=== PATIENT | female | born 1950 | race Caucasian/White ===

== ENCOUNTER → 2017-02-01 | Outpatient (CLI) | payer BC, MEDICARE ==
--- NOTE | 2017-02-05 07:22 | MM ---
Reason for exam: screening (asymptomatic). Last mammogram was performed 7 years ago. History: Patient is postmenopausal. Cancelled Right US Needle Biopsy of the right breast, June 27, 2005. Took hormonal contraceptives for 6 months. Took estrogen for 2 years beginning at age 49. Physical Findings: A clinical breast exam by your physician is recommended on an annual basis and results should be correlated with mammographic findings. MG Screening Mammo w CAD Bilateral CC and MLO view(s) were taken. Prior study comparison: January 25, 2010, bilateral digital screening mammogram. May 12, 2007, bilateral screening mammogram w/CAD. The breast tissue is heterogeneously dense. This may lower the sensitivity of mammography. Nodular asymmetry far posterior and lateral right CC view likely not included in the field of view on prior exams. An intramammary lymph node is suggested. 6 month follow up recommended. ASSESSMENT: Probably benign, BI-RAD 3 RECOMMENDATION: Follow-up diagnostic mammogram of the right breast in 6 months.
== END | disposition home or self-care (01) ==
LOC: RADMAMWWP 14:58
PROVIDERS: ATTEND Family Medicine
DX: Z12.31 Encounter for screening mammogram for malignant neoplasm of breast (principal)

== ENCOUNTER → 2018-03-07 | Outpatient (CLI) | payer MEDICARE ==
--- NOTE | 2018-03-10 11:19 | MM ---
Reason for exam: screening (asymptomatic). Last mammogram was performed 1 year and 1 month ago. History: Patient is postmenopausal. Cancelled Right US Needle Biopsy of the right breast, June 27, 2005. Took hormonal contraceptives for 6 months. Took estrogen for 2 years beginning at age 49. Physical Findings: A clinical breast exam by your physician is recommended on an annual basis and results should be correlated with mammographic findings. MG Screening Mammo w CAD Bilateral CC and MLO view(s) were taken. Prior study comparison: February 01, 2017, bilateral MG screening mammo w CAD. January 25, 2010, bilateral digital screening mammogram. The breast tissue is heterogeneously dense. This may lower the sensitivity of mammography. No significant changes when compared with prior studies. ASSESSMENT: Benign, BI-RAD 2 RECOMMENDATION: Routine screening mammogram of both breasts in 1 year.
== END | disposition home or self-care (01) ==
LOC: RADMAMWWP 15:13
PROVIDERS: ATTEND Family Medicine
DX: Z12.31 Encounter for screening mammogram for malignant neoplasm of breast (principal)
CPT/HCPCS: 77067

== ENCOUNTER → 2020-07-27 | Day surgery (SDC) | payer MEDICARE ==
[2020-07-25 11:04] VITALS: BMI 27.4
[~2020-07-27] MED LIST: BALANCED SALT IRRIG SOLN COMB2 15 ML IRRIG.SOLN INTRAOCULA ONE; EPINEPHrine (PF) 0.3 ML in BALANCED SALT IRRIG SOLN COMB2 500 ML IRRIGATION ONE; HYALURONATE SODIUM INTRAOCULAR 1 EACH SYRINGE (12MG/ML) INTRAOCULA ONE; LACTATED RINGERS 1,000 ML IV SCH; LIDOCAINE 1% (PF) 10MG/ML VIAL SQ ONE; MIDAZOLAM 2 MG/2 ML VIAL ONE; MOXIFLOXACIN HCL 0.5% DROPS 3 ML BTL OP PRN; TETRACAINE 0.5% OPHTH (PF) DROPS 4 ML BTL OP PRN; TIMOLOL 0.5% OPHTH DROPS 5 ML BTL OP PRN; fentaNYL (PF) 50 MCG/ML 2 ML AMP ONE
[2020-07-27] MEDS: CYCLOPENTOLATE 1% OPHTH SOLN 2 ML BTL OP PRN ×3 (07:53→08:00)
[2020-07-27] MEDS: PHENYLEPHRINE 2.5% OPHTH DRP 2ML OP PRN ×3 (07:54→08:01)
[2020-07-27 07:59] VITALS: TEMP 97.4
[2020-07-27 08:06] LABS: Glucose,Whole Blood 125 mg/dL (75-99)
--- NOTE | 2020-07-27 09:25 | P.OP ---
Date of Procedure: 07/27/20 Preoperative Diagnosis: ns & cs & psc Postoperative Diagnosis: same Procedure(s) Performed: PIOL, OS Implants: MX50E 15.5 Anesthesia: MAC Surgeon: Newton Dos Santos Pathology: none sent Condition: stable Disposition: same day Indications for Procedure: blurry vision Operative Findings: no complications
[2020-07-27 09:46] VITALS: BP 121/74; PULSE 74; RESP 18
--- NOTE | 2020-07-27 16:06 | OP ---
OPERATIVE REPORT DATE OF SURGERY: July 27, 2020. PROCEDURE: Phacoemulsification of cataract and intraocular lens implant of the left eye. PREOPERATIVE DIAGNOSES: Nuclear sclerosis, cortical sclerosis and posterior subcapsular cataract and regular astigmatism. POSTOPERATIVE DIAGNOSES: Nuclear sclerosis, cortical sclerosis and posterior subcapsular cataract and regular astigmatism. SURGEON: Dr. Newton Dos Santos. ANESTHESIA: Topical. ESTIMATED BLOOD LOSS: None. SPECIMEN TAKEN: None. NARRATIVE: After obtaining the appropriate consent, the patient was brought to the operating room. There she was placed under cardiac monitoring, prepped and draped in the usual sterile manner. She was approached from the 12 o'clock position and at the 2 o'clock position on the eye, an MVR blade was used to create a paracentesis port. Through this opening, 1% Xylocaine MPF 50:50 mix with balanced salt solution was injected into the anterior chamber. This was followed by stabilization of the anterior chamber with Amvisc. At the 12 o'clock position, a 2.5 mm keratome was used to create a self-sealing corneal flap incision. Through this opening, a cystotome was introduced to begin a continuous tear capsulorrhexis which was then completed using the Utrata forceps. Hydrodissection and hydrodelineation of the lens was accomplished with balanced salt solution. Phacoemulsification of lens utilizing phaco chop was accomplished in 18.93 seconds at 19% power. Additional Xylocaine MPF was instilled into the anterior chamber. This was followed by removal of the remaining cortex under irrigation and aspiration as well as careful polishing of the posterior capsule in the capsule vacuum mode. Additional Amvisc was then used to stabilize the capsular bag and a [employer]ch [employer] MX60E 15.5 diopter posterior chamber intraocular lens was then injected into the capsular bag without difficulties. The remaining viscoelastic was then removed from in and around the intraocular lens as well as the anterior chamber. The eye was then brought to normal intraocular pressures through the paracentesis port and the incisions were confirmed watertight. She then received 2 drops of 0.5% moxifloxacin as well as 2 drops of 0.5% timolol. She was lightly patched and shielded in the usual manner. There were no difficulties encountered during the procedure and she was returned to outpatient recovery in good condition. MMODL / IJN: [id number] /
== END | disposition home or self-care (01) ==
LOC: OR 07:23
PROVIDERS: ATTEND Ophthalmology
DX: E11.36 Type 2 diabetes mellitus with diabetic cataract (principal); H25.13 Age-related nuclear cataract, bilateral; H25.013 Cortical age-related cataract, bilateral; H25.043 Posterior subcapsular polar age-related cataract, bilateral; H52.13 Myopia, bilateral; H52.4 Presbyopia; Z79.84 Long term (current) use of oral hypoglycemic drugs; Z79.899 Other long term (current) drug therapy; Z88.6 Allergy status to analgesic agent
CPT/HCPCS: 66984; C1780; J2250; J0171; J3010; J2001

== ENCOUNTER → 2020-11-09 | Outpatient (CLI) | payer MEDICARE ==
--- NOTE | 2020-11-09 16:04 | CT ---
EXAMINATION TYPE: CT brain wo/w con DATE OF EXAM: 11/09/2020 COMPARISON: None HISTORY: Memory changes. CT DLP: 2475 mGycm Automated exposure control for dose reduction was used. CONTRAST: CT scan of the head is performed without and with IV Contrast, patient injected with 80 mL of Isovue M300. FINDINGS: There is questionable asymmetric right cerebellar cortical nonmasslike enhancement. There is no intra cranial hemorrhage, midline shift, or midline shift identified. The ventricles and sulci are within normal limits in size. There is mild general volume loss concordant with age. Mild patchy white matte r hypodensities may represent sequela of chronic microvascular ischemic change. No abnormal extra-axi al fluid collection. No depressed calvarial fracture. Mastoid air cells and visualized sinuses are cl ear. IMPRESSION: 1. Questionable asymmetric right cerebellar peripheral cortical nonmasslike enhancement. Recommend MR I of the brain with contrast for further characterization. 2. No acute intracranial hemorrhage, midline shift, or mass effect. 3. Age-related findings concordant with age.
== END | disposition home or self-care (01) ==
LOC: RADCTMAIN 14:39
PROVIDERS: ATTEND Family Medicine
DX: R93.0 Abnormal findings on diagnostic imaging of skull and head, not elsewhere classified (principal)
CPT/HCPCS: 82565; 84520; 70470; 36415; Q9967

== ENCOUNTER → 2021-03-20 | Outpatient (CLI) | payer MEDICARE ==
--- NOTE | 2021-03-21 13:21 | ECHOF ---
Referral Reason:Z86.73 Personal History Tranlent Ischemic Attack MEASUREMENTS -------- HEIGHT: 162.6 cm WEIGHT: 71.2 kg BP: RVIDd: 3.0 cm (< 3.3) IVSd: 1.0 cm (0.6 - 1.1) LVIDd: 4.6 cm (3.9 - 5.3) LVPWd: 1.1 cm (0.6 - 1.1) IVSs: 1.4 cm LVIDs: 2.9 cm LVPWs: 1.5 cm LA Diam: 4.0 cm (2.7 - 3.8) LAESV Index (A-L): 31.10 ml/m MV EXCURSION: 15.965 mm (> 18.000) MV EF SLOPE: 46 mm/s (70 - 150) EPSS: 0.4 cm MV E Alfredito: 0.53 m/s MV DecT: 311 ms MV A Alfredito: 0.76 m/s MV E/A Ratio: 0.69 RAP: 5.00 mmHg RVSP: 24.73 mmHg FINDINGS -------- Sinus rhythm. This was a technically good study. LV size, wall thickness and systolic function are normal, with an EF greater than 55%. The left yesica tricular size is normal. The right ventricle is normal in size. LA is midly dilated 29-33ml/m2. The right atrial size is normal. There is mild aortic valve sclerosis. There is no evidence of aortic regurgitation. Mild mitral regurgitation is present. Mild tricuspid regurgitation present. Right ventricular systolic pressure is normal at < 35 mmHg. There is no pulmonic regurgitation present. Echo free space represents a pericardial fat pad. CONCLUSIONS -------- 1. LV size, wall thickness and systolic function are normal, with an EF greater than 55%. 2. The left ventricular size is normal. 3. The right ventricle is normal in size. 4. LA is midly dilated 29-33ml/m2. 5. The right atrial size is normal. 6. There is mild aortic valve sclerosis. 7. Mild mitral regurgitation is present. 8. Mild tricuspid regurgitation present. 9. Echo free space represents a pericardial fat pad. MEDICAL RADIATION THERAPIST: Suri Sanchez RDCS
== END | disposition home or self-care (01) ==
LOC: RADECHMAIN 13:50
PROVIDERS: ATTEND Family Medicine
DX: I35.8 Other nonrheumatic aortic valve disorders (principal); I51.7 Cardiomegaly; Z86.73 Personal history of transient ischemic attack (TIA), and cerebral infarction without residual deficits
CPT/HCPCS: 93306

== ENCOUNTER → 2021-04-18 | Outpatient (CLI) | payer MEDICARE | END | disposition home or self-care (01) | LOC: RADECHMAIN 12:25 | PROVIDERS: ATTEND Family Medicine | DX: Z53.9 Procedure and treatment not carried out, unspecified reason (principal) | CPT/HCPCS: 93270 ==

== ENCOUNTER → 2022-12-05 | Outpatient (CLI) | payer MEDICARE ==
[~2022-12-05] MED LIST changes: -BALANCED SALT IRRIG SOLN COMB2 15 ML IRRIG.SOLN INTRAOCULA ONE; -EPINEPHrine (PF) 0.3 ML in BALANCED SALT IRRIG SOLN COMB2 500 ML IRRIGATION ONE; -HYALURONATE SODIUM INTRAOCULAR 1 EACH SYRINGE (12MG/ML) INTRAOCULA ONE; -LACTATED RINGERS 1,000 ML IV SCH; -LIDOCAINE 1% (PF) 10MG/ML VIAL SQ ONE; -MIDAZOLAM 2 MG/2 ML VIAL ONE; -MOXIFLOXACIN HCL 0.5% DROPS 3 ML BTL OP PRN; +SODIUM CHLORIDE 0.9% 500 ML 500 ML in EMPTY BAG 1 BAG IV PRN; -TETRACAINE 0.5% OPHTH (PF) DROPS 4 ML BTL OP PRN; -TIMOLOL 0.5% OPHTH DROPS 5 ML BTL OP PRN; +ZOLEDRONIC ACID 5 MG in SODIUM CHLORIDE 0.9% 100 ML IV NR; -fentaNYL (PF) 50 MCG/ML 2 ML AMP ONE
[2022-12-05 14:20] VITALS: BP 106/63; PULSE 73; RESP 16; TEMP 98.2
== END ==
LOC: PROCWHC3 14:01
PROVIDERS: ATTEND Family Medicine
DX: M81.0 Age-related osteoporosis without current pathological fracture (principal)
CPT/HCPCS: 96365; J3489

== ENCOUNTER → 2024-03-06 | Outpatient (CLI) | payer MEDICARE ==
[~2024-03-06] MED LIST changes: -ZOLEDRONIC ACID 5 MG in SODIUM CHLORIDE 0.9% 100 ML IV NR
[2024-03-06] MEDS: ZOLEDRONIC ACID 5 MG in SODIUM CHLORIDE 0.9% 100 ML IV NR (14:05)
[2024-03-06] MEDS: SODIUM CHLORIDE 0.9% 250 ML in EMPTY BAG 1 BAG IV PRN (14:05)
[2024-03-06 14:11] VITALS: BP 103/53; PULSE 70; RESP 16; TEMP 98.3
== END ==
LOC: PROCWHC3 13:55
PROVIDERS: ATTEND Family Medicine
DX: M81.0 Age-related osteoporosis without current pathological fracture (principal)
CPT/HCPCS: 96365; J3489

== ENCOUNTER → 2024-10-28 | Outpatient (CLI) | payer MEDICARE ==
--- NOTE | 2024-10-28 17:38 | MR ---
CLINICAL INDICATION: R41.3,I72.9 ANEURYSM OF UNSPECIFIED SITE COMPARISON: CT brain 11/09/2020 TECHNIQUE: MR angiography of the head was performed utilizing 3-D noncontrast time of flight images. 3-D reformatted MIP images were generated on a separate workstation for review. Vascular assessment was performed utilizing NASCET criteria. Findings: Vertebral arteries: The vertebral arteries are patent. The vertebral arteries are codominant. Basilar artery: The basilar artery is intact. The basilar artery bifurcation is normal. Internal Carotid arteries: The left internal carotid artery is normal. 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 The more lateral larger aneurysm measures 6.5 x 5.4 mm (series 301, image 89). The smaller more medial aneurysm measures 4.0 x 2.5 mm (series 301, image 89). ROSA: Patent with no evidence of aneurysm. ACOM: There is a small 1 mm aneurysm versus infundibulum at its origin from the A1 segment of the lef t ROSA (series 301, image 104). MCA: Patent with no evidence of aneurysm. NICKER AND BREAKER: Patent with no evidence of aneurysm. PCOM: Hypoplastic bilaterally. IMPRESSION: 1. 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 2. Additional small 1 mm aneurysm versus infundibulum involving the ACOM at its origin from the A1 s egment of the left ROSA. 3. No evidence of significant stenosis. [facility], , 10/28/2024 5:36 PM
--- NOTE | 2024-10-28 17:53 | MR ---
INDICATION: Patient age:Female; 74 years old; Reason for study: R41.3,I72.9 ANEURYSM OF UNSPECIFIED SITE; [facility]. COMPARISON: MRA head 10/28/2024, CT brain 11/09/2020. TECHNIQUE: Multi planar, multi sequence imaging was performed through the brain without the administr ation of intravenous contrast. FINDINGS: The ellington-white junctions, ventricular system, basal cisterns appear unremarkable for patient's age an d level cerebral volume loss. Mild age-appropriate cerebral volume loss. Diffusion-weighted imaging s hows no evidence of restricted diffusion to suggest acute/subacute infarct. Intracranial arterial pretty w voids are maintained. Please refer to concurrent MRA head of the same day for findings related to a neurysms. Midline structures show no abnormality. Couple of foci of high T2/FLAIR signal intensity ar e seen within the subcortical white matter. Largest within the left frontal lobe subcortical white ma tter measures up to 6.4 mm (series 601, image 19). The susceptibility weighted images do not reveal a ny evidence for micro-hemorrhage. The bone marrow signal is within normal limits. Bilateral aphakia. Complete opacification of the lef t sphenoid sinus with some fluid and internal debris. Near complete opacification of posterior left e thmoid sinus with fluid. The remaining visualized paranasal sinuses are relatively clear. IMPRESSION: 1. No evidence of intracranial mass or acute/subacute infarct. 2. Minimal nonspecific white matter changes, likely related to small vessel ischemic disease. Demyeli nating disease, chronic migraines, vasculitis, Lyme disease are other considerations. 3. Paranasal sinus disease involving the left sphenoid and left posterior ethmoid sinuses. 4. Please refer to dedicated MRA head of the same day for findings related to aneurysms. [facility], , 10/28/2024 5:51 PM
== END | disposition home or self-care (01) ==
LOC: RADMRIMAIN 16:20
PROVIDERS: ATTEND Psychiatry & Neurology Neurology
DX: R90.82 White matter disease, unspecified (principal); G43.909 Migraine, unspecified, not intractable, without status migrainosus; L95.9 Vasculitis limited to the skin, unspecified; A69.20 Lyme disease, unspecified; R41.3 Other amnesia; J34.89 Other specified disorders of nose and nasal sinuses; I65.21 Occlusion and stenosis of right carotid artery
CPT/HCPCS: 70544; 70551